=== PATIENT | male | born 1970 | race Caucasian/White ===

== ENCOUNTER 2018-02-03 21:01 | Emergency (ER) | payer OTHER ==
[~2018-02-03] VITALS: Ht 177.8 cm; Wt 117.2 kg
[2018-02-03 21:50] LABS: HEMATOCRIT 41.5 % (38.0-50.0); HEMOGLOBIN 14.7 G/DL (12.5-16.6); MCH 35.3 PG (29.0-34.0); MCHC 35.4 G/DL (30.0-36.0); MCV 99.5 FL (86-99); PLATELET COUNT 214 K/uL (156-360); RBC DIS.WIDTH-CV 12.4 % (11.8-14.6); RBC DIS.WIDTH-SD 45.8 % (39-53); RED BLOOD COUNT 4.17 M/uL (4.00-5.50); WHITE BLOOD COUNT 10.3 K/uL (4.1-10.2)
[2018-02-03 22:00] LABS: ALBUMIN 4.4 g/dL (3.2-4.8)
[2018-02-03 22:01] LABS: CHLORIDE 105 mEq/L (99-109); POTASSIUM 3.6 mEq/L (3.7-5.4); SODIUM 140 mEq/L (136-147)
[2018-02-03 22:01] LABS: APPEARANCE CLEAR ((CLEAR)); BILIRUBIN NEGATIVE; BLOOD LARGE; COLOR YELLOW ((YELLOW)); GLUCOSE (STRIP) NEGATIVE; KETONES NEGATIVE; LEUKOCYTES NEGATIVE; NITRITE NEGATIVE; PROTEIN (STRIP) 30; SPECIFIC GRAVITY 1.021 (1.000-1.030); UROBILINOGEN 0.2 MG/DL (0.2-1.0)
[2018-02-03 22:03] LABS: GLUCOSE 121 mg/dL (70-99); TOTAL PROTEIN 7.8 g/dL (6.4-8.3)
[2018-02-03 22:05] LABS: TOTAL BILIRUBIN 0.6 mg/dL (0.0-1.0)
[2018-02-03 22:06] LABS: ALKALINE PHOSPHATASE 73 IU/L (3-129)
[2018-02-03 22:07] LABS: CREATININE 1.2 mg/dL (0.6-1.3); GFR ESTIMATE (CALCULATED) > 59 mL/min/ (58.99-99999)
[2018-02-03 22:08] LABS: AST (GOT) 34 IU/L (2-34); UREA NITROGEN (BUN) 13 mg/dL (9-23)
[2018-02-03 22:10] LABS: ALT (GPT) 43 IU/L (3-49)
[2018-02-03 22:13] LABS: BACTERIA RARE /HPF; EPITHELIAL CELLS RARE /HPF; MUCUS TRACE /LPF; RED BLOOD CELLS 20-30 /HPF (0-5); UCUL ADDED? NO; WHITE BLOOD CELLS 0-5 /HPF (0-5)
[2018-02-03] MEDS ORDERED: NORCO 10/3251 TABLET PO (22:46)
[2018-02-03 23:25] VITALS: BP 166/98
== END 2018-02-03 23:26 | disposition home or self-care (01) ==
LOC: EME → EDBD 21:01 → EME 23:26
PROVIDERS: Emergency Medicine
DX: N20.0 Calculus of kidney (principal); K21.9 Gastro-esophageal reflux disease without esophagitis; Z87.442 Personal history of urinary calculi; Z98.890 Other specified postprocedural states; Z88.0 Allergy status to penicillin
CPT/HCPCS: 80053; 81003; 85027; 99281; 99285; J1885; J7030

== ENCOUNTER 2018-02-09 08:50 | Day surgery (SDC) | payer OTHER ==
[~2018-02-09 08:50] MED LIST: NORCO 10/3251 TABLET PO
[2018-02-09 09:15] VITALS: BP 134/93
[2018-02-09] MEDS ORDERED: MOTRIN400 MG PO ×2 (09:16)
[2018-02-09] MEDS ORDERED: ZOFRAN4 MG PO (09:17)
[2018-02-09] MEDS ORDERED: FLOMAX0.4 MG PO (09:18)
[2018-02-09 13:37] VITALS: BP 152/82
[2018-02-09 14:25] VITALS: BP 139/86
== END 2018-02-09 14:35 | disposition home or self-care (01) ==
LOC: SDC 08:50
PROC: 0TF68ZZ Fragmentation in Right Ureter, Via Natural or Artificial Opening Endoscopic (ICD-10-PCS; principal; 2018-02-09)
PROC: 0T768DZ Dilation of Right Ureter with Intraluminal Device, Via Natural or Artificial Opening Endoscopic (ICD-10-PCS; principal; 2018-02-09)
DX: N20.1 Calculus of ureter (principal); K21.9 Gastro-esophageal reflux disease without esophagitis; Z87.891 Personal history of nicotine dependence; Z96.642 Presence of left artificial hip joint; Z90.49 Acquired absence of other specified parts of digestive tract
CPT/HCPCS: C1769; J0696; J1100; J1885; J2405; J3010